=== PATIENT | male | born 1945 | race Caucasian/White ===

== ENCOUNTER 2020-03-24 16:27 | Emergency (ER) | payer MEDICAID, OTHER ==
[~2020-03-24] VITALS: Ht 172 cm; Wt 55.0 kg
[2020-03-24] MEDS ORDERED: NS 1000 ML IV BAG IV ONE (16:29)
[2020-03-24] MEDS ORDERED: EPINEPHrine 0.1 MG/ML 10 ML (HOSPIRA) SYR IJ ONE (16:29)
[2020-03-24] MEDS ORDERED: cefTRIAXone 1,000 MG IV (ROCEPHIN) VIAL ONE (16:48)
--- NOTE | 2020-03-24 16:54 | ED CPR ---
HPI-CPR General Chief Complaint: Code Blue Stated Complaint: UNRESPONSIVE Source of Information: EMS History of Present Illness Date Seen by Provider: Mar 24, 2020 Time Seen by Provider: 16:27 Initial Comments 74 yo male brought in by EMS as a code blue after being called to scene of patient that was unresponsive on the ground. He had reportedly been walking down the sidewalk and had been seen to fall and get back up and continue to walk but then had fallen again and was on responsive when bystanders had checked on him. EMS was activated due to him being unresponsive. When EMS arrived the patient was bradycardic and not breathing adequately. He was given atropine to try and help with his rate and he was intubated to help with his breathing. The atropine was not helping significantly so a second dose was given and the patient was placed on pacer pads. He was very cold and his pupils were fixed and dilated. He had no spontaneous respirations of his own. No known history for the patient but he does smell of cigarette smoke and has several lighters and 2 packs of cigarettes in his pockets. Bystander CPR: No Down-Time Before ACLS: unclear Paramedics Initial Findings: Agonal Respirations, Unresponsive, Weak Pulse (bradycardia) Pre Hospital Treatment: Intubation, IV Fluids, Atropine (mg) (2) Allergies and Home Medications Allergies Coded Allergies: No Known Drug Allergies (Unverified , 03/25/20) Patient Home Medication List Home Medication List Reviewed: No (unable to obtain due to patient being coded) Review of Systems Review of Systems Constitutional: other (unable to obtain due to patient unresponsive, intubated and being coded) Other Comments unable to obtain ROS due to patient unresponsive, intubate and being coded Past Axfdfdt-Iykzly-Vniztv Hx Past Med/Social Hx: Reviewed Nursing Past Med/Soc Hx Patient Social History Smoking Status: Heavy Tobacco Smoker Type Used: Cigarettes Past Medical History Respiratory: Yes COPD Neurological: Yes Traumatic Brain Injury (brain bleed) Physical Exam Vital Signs Vital Signs - First Documented 03/24/20 03/24/20 16:27 18:53 Temp 30.2 Pulse 0 Resp 12 B/P (MAP) 0/0 (0) Pulse Ox 0 O2 Delivery Ambu Bag Capillary Refill : Height, Weight, BMI Height: '" Weight: lbs. oz. kg; BMI Method: General Appearance: Other (unresponsive, intubated and being coded) HEENT: Other (pupils fixed and dilated) Respiratory: Other (breath sounds equal. no spontaneous respirations. pt intubated and breathing only by ventilations ) Cardiovascular: Other (no spontaneous pulse. ) Gastrointestinal: No Pulsatile Mass, Soft Extremity: No Pedal Edema Neurologic/Psychiatric: Other (unresponsive, intubated with pupils fixed and dilated ) Skin: Cool, Pallor Progress/Results/Core Measures Results/Orders My Orders Orders - LORNE BAEZ MD Ceftriaxone For Iv Use (Rocephin For I (03/24/20 16:48) Vital Signs/I&O 03/24/20 03/24/20 16:27 18:53 Temp 30.2 Pulse 0 0 Resp 12 0 B/P (MAP) 0/0 (0) 0/0 Pulse Ox 0 O2 Delivery Ambu Bag 03/24/20 23:59 Intake Total 750 ml Balance 750 ml Progress Progress Note : Progress Note As patient was switched to the ED equipment from EMS equipment a pulse check was performed and there was no spontaneous pulse or respirations. He was given a fluid bolus and epinephrine for being in asystole. He was placed on autopulse for compressions and ventilator to continue ventilating pt. He continued in asystole despite 2 additional doses of epinephrine. He did seem to be in ventricular fibrillation on pulse check so he was shocked once and then compressions were resumed. He had no return of spontaneous circulation or respirations. Considering that he had fixed and dilated pupils and was unresponsive and was not responding to treatments it was felt that further eff orts were futile and he was pronounced at 1643. Departure Impression Primary Impression: Cardiac arrest Additional Impression: Unsuccessful cardiopulmonary resuscitation Disposition: 20 (1642) Condition: (1642) LORNE BAEZ MD Mar 24, 2020 16:54
--- NOTE | 2020-03-24 17:34 | NUR ---
Pt's son and daughter here at this time talking with Dr. Boyd
--- NOTE | 2020-03-24 17:58 | NUR ---
Family reports pt's PCP was previously Dr. Patterson, pt most recently received care at [facility].
--- NOTE | 2020-03-24 17:58 | NUR ---
Patient belongings given to daughter at this time.
[2020-03-24 18:53] VITALS: BP 0/0
== END 2020-03-24 19:01 | disposition expired ==
LOC: ER FS 16:28
DX: I46.9 Cardiac arrest, cause unspecified (principal); Z87.820 Personal history of traumatic brain injury
CPT/HCPCS: 36680